=== PATIENT | female | born 1985 | race Caucasian/White ===

== ENCOUNTER → 2022-01-25 | Outpatient (REF) | payer OTHER | LOC: M LAB REF 09:20 | PROVIDERS: ATTEND Physician Assistant Medical | DX: Z11.9 Encounter for screening for infectious and parasitic diseases, unspecified (principal); B96.81 Helicobacter pylori [H. pylori] as the cause of diseases classified elsewhere ==

== ENCOUNTER 2022-08-08 10:32 | Day surgery (SDC) | payer OTHER ==
[~2022-08-08] VITALS: Ht 157.5 cm; Wt 50.8 kg
[~2022-08-08 10:32] MED LIST: BUSP10TA PO; NS 1,000 ML IV ONE
[2022-08-08] MEDS ORDERED: LIDOCAINE 2% 100MG/5ML SDV (FOR ANES.) As Ordered ONE (11:22)
[2022-08-08] MEDS ORDERED: fentaNYL 100 MCG/2 ML INJECTION As Ordered ONE (11:22)
[2022-08-08] MEDS ORDERED: propofoL 200 MG/20 ML VIAL As Ordered ONE (11:22)
[2022-08-08 12:47] VITALS: BP 117/63
== END 2022-08-08 12:57 | disposition home or self-care (01) ==
LOC: M OPP 10:32
PROVIDERS: ATTEND Internal Medicine Gastroenterology
DX: K63.5 Polyp of colon (principal); K64.8 Other hemorrhoids; K58.1 Irritable bowel syndrome with constipation; Q43.8 Other specified congenital malformations of intestine; K29.70 Gastritis, unspecified, without bleeding; B96.81 Helicobacter pylori [H. pylori] as the cause of diseases classified elsewhere; Z79.3 Long term (current) use of hormonal contraceptives
CPT/HCPCS: 43239; 45385; 88305; J3010

== ENCOUNTER 2022-09-19 23:43 | Emergency (ER) | payer OTHER ==
[~2022-09-19] VITALS: Ht 157.5 cm; Wt 51.0 kg
[~2022-09-19 23:43] MED LIST changes: -NS 1,000 ML IV ONE
[2022-09-20] MEDS ORDERED: ONDANSETRON 4MG 2ML VIAL IV ONE (01:05)
[2022-09-20] MEDS ORDERED: NS 1,000 ML IV ONE (01:05)
[2022-09-20 02:36] LABS: HEMATOCRIT 38.9 % (36.0-47.0); MEAN CORPUSCULAR HGB CONC 33.4 g/dl (32.0-36.5); MEAN CORPUSCULAR VOLUME 89.6 fl (80.0-96.0); PLATELET COUNT, AUTOMATED 212 10^3/uL (150-450); RED BLOOD COUNT 4.34 10^6/uL (4.00-5.40); WHITE BLOOD COUNT 12.4 10^3/uL (4.0-10.0)
[2022-09-20 03:01] LABS: ALKALINE PHOSPHATASE 43 U/L (46-116); ALT/SGPT 28 U/L (7.0-40); AST/SGOT 20 U/L (<34); BILIRUBIN,TOTAL 0.2 MG/DL (0.3-1.2); BLOOD UREA NITROGEN 12 MG/DL (9-23); CALCIUM LEVEL 8.7 MG/DL (8.5-10.1); CARBON DIOXIDE LEVEL 22 MMOL/L (20-31); CHLORIDE LEVEL 108 MMOL/L (98-107); CREATININE FOR GFR 0.55 MG/DL (0.55-1.30); GLOMERULAR FILTRATION RATE > 60.0 (>60); GLUCOSE, FASTING 142 MG/DL (60-100); MAGNESIUM LEVEL 1.8 MG/DL (1.8-2.4); POTASSIUM SERUM 3.5 MMOL/L (3.5-5.1); SODIUM LEVEL 140 MMOL/L (136-145)
[2022-09-20 03:16] LABS: CPK CREATINE PHOSPHOKINASE 77 U/L (34-145)
[2022-09-20] MEDS ORDERED: IBUPROFEN 600MG TAB PO ONE (04:10)
[2022-09-20 06:19] VITALS: BP 110/55
[2022-09-20] MEDS ORDERED: ACETAMINOPHEN TAB 650MG DOSE (2X325MG) PO ONE (07:45)
== END 2022-09-20 08:44 | disposition home or self-care (01) ==
LOC: M ED 23:43
DX: S09.90XA Unspecified injury of head, initial encounter (principal); S00.83XA Contusion of other part of head, initial encounter; Y04.0XXA Assault by unarmed brawl or fight, initial encounter; Y92.410 Unspecified street and highway as the place of occurrence of the external cause; Z79.899 Other long term (current) drug therapy; Y99.9 Unspecified external cause status
CPT/HCPCS: 70450; 70486; 72125; 80053; 82077; 82550; 83605; 83735; 85027; 96361; 96374; 99284; J2405

== ENCOUNTER → 2023-01-13 | Outpatient (REF) | payer OTHER | LOC: M LAB REF 12:29 | PROVIDERS: ATTEND Physician Assistant Medical | DX: B96.81 Helicobacter pylori [H. pylori] as the cause of diseases classified elsewhere (principal) ==

== ENCOUNTER 2024-01-15 01:46 | Emergency (ER) | payer OTHER ==
[~2024-01-15] VITALS: Ht 157.5 cm; Wt 54.5 kg
[2024-01-15] MEDS: ACETAMINOPHEN TAB 650MG DOSE (2X325MG) PO ONE (04:03)
[2024-01-15 06:23] VITALS: BP 119/61; TEMP 97.7; O2SAT 100
== END 2024-01-15 07:00 | disposition home or self-care (01) ==
LOC: M ED 01:46
DX: S93.402A Sprain of unspecified ligament of left ankle, initial encounter (principal); W10.1XXA Fall (on)(from) sidewalk curb, initial encounter; Y92.410 Unspecified street and highway as the place of occurrence of the external cause; Y93.89 Activity, other specified; Y99.9 Unspecified external cause status; Z79.899 Other long term (current) drug therapy